=== PATIENT | female | born 1965 | race Caucasian/White ===

== ENCOUNTER 2016-05-09 23:55 | Emergency (ER) | payer MEDICARE ==
--- NOTE | ~2016-05-09 | CT16 ---
[facility] A Service of [facility] & [facility] RADIOLOGY TEXT RESULTS PATIENT: SCHUYLER MONREAL LOCATION: SED : 63 UNIT #: [id number] AGE: [address]: Luis Rodriguez MD SEX: F ORDER DR: [id number] [place] [id number] E MR#: [id number] Acc #: [id number] NAME: SCHUYLER MONREAL : 1965 SEX: F STUDY DATE/TIME: 05/10/2016 1:32 UNIT: SED ROOM: STUDY DESCRIPTION: CT Angio Chest for PE Attending Physician: Luis Rodriguez M.D. Ordering Physician: Luis Rodriguez M.D. Primary Care Physician: Bo Gomez M.D. MEDICAL IMAGING REPORT This report is preliminary unless electronic signature is present. EXAM CT angiography of the chest with IV contrast, PE protocol. COMPARISON CT chest dated November 23, 2004. INDICATION 51-year-old female with dyspnea and mid upper back pain for [address] imaging of the chest was performed during pulmonary arterial phase postcontrast imaging after administration of 80 mL of Isovue-370 intravenously. Coronal MIPs and sagittal reformats were constructed. This CT exam was performed with one or more of the following radiation dose reduction techniques: automatic exposure control, adjustment of mA and/or kV according to patient size, and iterative reconstruction. FINDINGS No acute fractures or suspicious osseous lesions. Airways are widely patent. No pneumothorax or pleural effusion. Normal caliber of the thoracic aorta and main pulmonary artery. No evidence of pulmonary embolus. There is mediastinal adenopathy with a subcarinal lymph node measuring up to 2.1 cm. There is bilateral hilar adenopathy measuring up to 2.2 cm on the right and 2 cm on the left. There is no evidence of pulmonary embolus. There is normal heart size, without pericardial effusion. No acute findings in the upper abdomen. There are ground-glass opacities throughout the lungs, with somewhat of a mosaic appearance and with suggestion of internal crazy paving. Patient was previously noted to have multiple ground-glass opacities in the lungs in 2004, but this has increased since that time. There are multiple cysts seen containing gas throughout the lungs. These do not have a typical appearance of emphysema. [facility] A Service of [facility] RADIOLOGY TEXT RESULTS PATIENT: SCHUYLER MONREAL [place] [facility] [place] 63 UNIT #: [id number] AGE: [address]: Luis Rodriguez MD SEX: F ORDER DR: IMPRESSION 1. No pulmonary embolus. 2. Bulky bilateral hilar and mediastinal adenopathy which may not be appreciably changed from CT of November 23, 2004. There are also increased diffuse ground-glass opacities with somewhat of a mosaic and crazy-paving appearance, especially in the lung bases. There are also many cysts throughout the lungs at least some of which were present in 2004. Constellation of findings would seem to most likely reflect sequela of sarcoidosis. A superimposed pneumonia cannot entirely be excluded. Alternately, consider lymphangiomyomatosis given the cysts within the lungs, but again sarcoidosis is favored. Ground-glass opacities with crazy-paving appearance can also be seen in ARDS or interstitial lung disease. Correlation with the patient's medical history is recommended. Consider pulmonology consultation. 3. No pleural effusion. Dictated by... Dwight Grewal M.D. THIS IS AN ELECTRONICALLY VERIFIED REPORT Dwight Grewal M.D. at 05/12/2016 7:00 AM KAMILA/iesha TD: 05/10/2016 09:08 JOB #: [id number] MEDICAL IMAGING REPORT
[~2016-05-09 23:55] MED LIST: ASPIRIN81 M1; AUGMENTIN875 MG PO; FLEXERIL10 MG PO; HYDROCORTIZONE; K-DUR20 ME1 PO; LORTAB 10-5001 EACH PO; MEDROL DOSEPAK4 MG DOB; NAPROXEN PO; ORUDIS75 M1 PO; PREMPRO 0.625/21 TAB PO; SYNTHROID PO; TYLOX 5/500 CAP1 CAP; TYLOX 5/500 CAP1 CAP PO; ZOCOR; ZOFRAN PO
[2016-05-09] MEDS ORDERED: SYNTHROID100 MCG/5 (23:56)
[2016-05-09] MEDS ORDERED: ALBUTEROL17 GM (23:56)
[2016-05-09] MEDS ORDERED: LORTAB 10-3251 EACH (23:57)
[2016-05-09] MEDS ORDERED: BAYER CHEWABLE81 MG PO (23:57)
[2016-05-09] MEDS ORDERED: SIMVASTATIN40 MG (23:57)
[2016-05-09] MEDS ORDERED: HYDROCORTISONE10 MG PO (23:58)
[2016-05-10 00:51] LABS: BASOPHIL# 0.1 X10e3 (0-0.3); BASOPHIL% 0.7 % (0-2.5); EOSINOPHIL# 0.3 X10e3 (0-0.7); EOSINOPHIL% 1.9 % (0.0-7.0); HEMATOCRIT 37.5 % (35.0-45.0); HEMOGLOBIN 12.7 gm/dL (12.0-16.0); LYMPHOCYTE# 4.9 X10e3 (1.0-3.5); LYMPHOCYTE% 36.3 % (17.0-45.0); MEAN CORPUSCULAR HGB CONC 33.7 g/dL (30-36); MEAN PLATELET VOLUME 6.8 FL (6.5-11.5); MONOCYTE# 0.7 X10e3 (0-1.0); NEUTROPHIL# 7.5 X10e3 (1.5-7.1); NEUTROPHIL% 56.1 % (40-75); PLATELET COUNT 312 X10e3 (140-420); RED BLOOD COUNT 4.22 X10e (3.90-5.30); RED CELL DISTRIBUTION WIDTH 13.3 % (11.0-15.5); WHITE BLOOD COUNT 13.4 X10e3 (4.0-10.5)
[2016-05-10 00:52] LABS: DIFF IND NO
[2016-05-10 01:09] LABS: ALBUMIN SERUM 3.6 g/dL (3.5-5.0); ALKALINE PHOSPHATASE 64 U/L (32-92); ALT (SGPT) 15 U/L (10-40); AST (SGOT) 15 U/L (10-42); BILIRUBIN,TOTAL 0.1 mg/dL (0.2-2.0); BLOOD UREA NITROGEN 13 mg/dL (9-23); BUN/CREATININE RATIO 18.57; CARBON DIOXIDE 28 mmol/L (22-31); CHLORIDE 104 mmol/L (100-111); CREATININE SERUM 0.7 mg/dL (0.6-1.4); GLOM FILT RATE Estimated ABOVE60 mL/min (>60); GLUCOSE FASTING 93 mg/dL (70-110); POTASSIUM 3.8 mmol/L (3.5-5.1); PROTEIN TOTAL SERUM 7.6 g/dL (6.0-8.3); SODIUM 138 mmol/L (135-145)
== END 2016-05-10 12:35 | disposition short-term general hospital (02) ==
LOC: SED 23:55
DX: J18.9 Pneumonia, unspecified organism (principal); F17.200 Nicotine dependence, unspecified, uncomplicated; Z79.899 Other long term (current) drug therapy; Z79.82 Long term (current) use of aspirin
CPT/HCPCS: 36415; 71275; 80053; 85025; 96365; 96375; 96376; 99284; J0456; J0696; J2270; J2405; Q9967